=== PATIENT | male | born 1960 | race Caucasian/White ===

== ENCOUNTER → 2019-03-14 14:47 | Outpatient (CLI) | payer OTHER, SELFPAY ==
--- NOTE | 2019-03-14 14:54 | CA_ITS ---
APPROVED REPORT EXAM: Comprehensive 2D, Doppler, and color-flow Echocardiogram Loan Expeditor: Jody Hastings CRT Ht: 5 ft 11 in Wt: 191lbs BSA: 2.07 BP: 117/74 mmHg Indications: pacer, afib 2D Dimensions LVOT 1.87 cm (M/F) 1.5-2.5 M-Mode Dimensions RVDd 2.32 cm (0.9-2.6) LVDd 4.29 cm (3.5-5.7) LVDs 2.78 cm (3.5-5.7) IVSd 1.14 cm (0.6-1.1) PWd 0.77 cm (0.6-1.1) EF (Teich) 64.90% FS 35.20% EDV (Teich) 82.60 mL ESV (Teich) 29.00 mL LV Diastology E/A Ratio 1.33 Mitral Valve MV A Velocity 59.00 (40-130 cm/s) Left Ventricle Left atrium is normal size, left ventricle is normal size, there is no concentric left ventricular hypertrophy, visually estimated ejection fraction 55% with no regional wall motion abnormality. Diastolic parameters are within normal range. Right Ventricle Right atrium and right ventricular normal size and contractility, there is a pacemaker lead seen in the right atrium and right ventricle. Aortic Valve Aortic valve is grossly normal, there is no aortic stenosis or aortic insufficiency. Mitral Valve Mitral valve is grossly normal, there is no mitral stenosis, there is mild mitral regurgitation. Tricuspid Valve Tricuspid valve is grossly normal, there is mild tricuspid regurgitation. Tricuspid regurgitation jet velocity is inadequate for calculation of the right ventricular systolic pressure. Pulmonic Valve Pulmonic valve is poorly visualized. Great Vessels Aortic root is normal size. Pericardium No significant pericardial effusion noted. Conclusion 1. Normal left ventricular size, preserved left ventricular systolic function, visually estimated ejection fraction 55% with no regional wall motion abnormality, diastolic parameters are within normal range. 2. Mild mitral and tricuspid regurgitation. 3. Pacemaker lead seen right atrium and right ventricle. 4. No significant pericardial effusion noted. Electronically signed by : Richar Pitts, 03/15/2019 15:05:18
== END ==
PROVIDERS: PCP Family Medicine; Visit Provider Family Medicine
DX: I42.9 Cardiomyopathy, unspecified (principal)
CPT/HCPCS: 93306

== ENCOUNTER 2020-10-31 13:10 | Emergency (ER) | payer OTHER, SELFPAY ==
[2020-10-31 14:28] VITALS: BP 146/80; PULSE 68; RESP 18; TEMP 36.9; O2SAT 98; BMI 25.7
--- NOTE | 2020-10-31 14:33 | HMH.EDUTC ---
[facility] [place] Disposition Clinical Impression: Sinus infection Qualifiers: Sinusitis location: unspecified location Chronicity: acute Recurrence: non-recurrent Qualified Code(s): J01.90 - Acute sinusitis, unspecified Disposition: Home, Self-Care Condition on Discharge: Good Instructions: Sinusitis, DI for Sinusitis Additional Instructions: Drink plenty of fluids. Take tylenol or ibuprofen for pain or fever. Take the medications as directed. Follow up with your regular doctor. GO TO THE ER FOR ANY WORSENING SYMPTOMS Quarantine until you know the results of your covid-19 test. If it is positive, the health department should call you and give you further instructions about your length of Quarantine and other things. Notify your school or workplace of your results and follow their instructions regarding return to work/school. Prescriptions: Amoxicillin/Potassium Clav [Augmentin 875-125 Tablet] 1 tab PO Q12H 10 Days #20 tab Transmission Status: Received by [facility] methylPREDNISolone [Medrol] 4 mg PO DIRECTED 6 Days #21 packet Transmission Status: Received by [facility] Benzonatate [Tessalon Perle 100mg Cap] 100 mg PO TIDP PRN #30 cap PRN Reason: Cough Transmission Status: Received by [facility] Referrals: Celina Dick MD [Primary Care Provider] - Time of Disposition: 15:08 Medical Decision Making - Medical Records Medical records reviewed: No: I reviewed the patient's medical records. - José Inquiry Pt receiving controlled substance: No Vital Signs: 10/31/20 14:28 10/31/20 15:09 Temperature 98.4 F 98.4 F Temperature Source Oral Oral Pulse Rate 68 Pulse Rate [Apical] 68 Respiratory Rate 18 18 Blood Pressure 146/80 H Blood Pressure [Right Arm] 146/80 H Blood Pressure Mean [Right Arm] 102 Blood Pressure Source Automatic Cuff Blood Pressure Source [Right Arm] Automatic Cuff Blood Pressure Position Sitting Blood Pressure Position [Right Arm] Sitting 02 Sat by Pulse Oximetry 98 Oxygen Delivery Method Room Air Room Air Orders (Tests/Meds): ORDERS Category Date Time Status Covid-19 Nasal PCR ([facility]) Routine Lab 10/31/20 15:10 Received [facility] HPI - General Stated complaint: mucus, cough, diarrhea, congestion Time Seen by Provider: 10/31/20 14:34 Mode of Arrival: Ambulatory Source of Information: Patient Limitations: No Limitations Description of Symptoms (Recalled from Triage Doc. by RN): cough HEENT Symptoms (Recalled from RN notes): No Resp Symptoms (Recalled from RN notes): Yes Skin Symptoms (Recalled from RN notes): No MS Symptoms (Recalled from RN notes): No Functional Status (Recalled from RN notes): na - History of Present Illness Provider Complaint: He states that for the past 6 days or so, he has had worsening sinus pressure and sinus congestion. - Related Data Previous Rx's Medication Instructions Recorded Amoxicillin/Potassium Clav 1 tab PO Q12H 10 Days #20 tab 10/31/20 [Augmentin 875-125 Tablet] Benzonatate [Tessalon Perle 100mg 100 mg PO TIDP PRN #30 cap 10/31/20 Cap] methylPREDNISolone [Medrol] 4 mg PO DIRECTED 6 Days #21 10/31/20 packet - Worker's Comp Is this a Worker's Comp case?: No [facility] History - Hepatitis A Screen Drug use history?: No High risk sexual behaviors?: No History of sexually transmitted infection?: No Currently employed?: No Childcare worker?: No Do you have indoor plumbing?: Yes Do you have electricity?: Yes Attestation statement:: This patient has been screened for Hepatitis A risk factors. I have reviewed the patient's past medical history: Yes ROS Obtained: Yes All systems reviewed & no additional complaints - Constitutional Constitutional: Denies chills, Denies fever(s), Reports poor appetite, Denies malaise - Eyes Eyes: Denies eye discharge - ENT Ears, Nose, Mouth, and Throat: Reports as per HPI - Cardiovascular Cardiovascular: Denies chest pa
[2020-10-31 15:09] VITALS: BP 146/80; PULSE 68; RESP 18; TEMP 36.9; O2SAT 98
--- NOTE | 2020-11-04 16:14 | PC.NURSE ---
pt notified of positive covid results.
== END 2020-10-31 15:10 | disposition home or self-care (01) ==
LOC: UTC 13:11
PROVIDERS: Emergency Provider Nurse Practitioner Family; PCP Family Medicine
DX: J01.90 Acute sinusitis, unspecified (principal); U07.1 COVID-19
CPT/HCPCS: 99202; C9803; G0463; U0003; U0005

== ENCOUNTER 2021-01-30 17:18 | Emergency (ER) | payer OTHER, SELFPAY ==
[2021-01-30 17:19] VITALS: BP 168/98; PULSE 76; RESP 18; TEMP 36.7; O2SAT 97; BMI 26.4
--- NOTE | 2021-01-30 17:31 | XR_ITS ---
PROCEDURE INFORMATION: Exam: XR Left Hand Exam date and time: 01/30/2021 5:31 PM Age: 60 years old Clinical indication: Injury or trauma; Other: Cut the end of thumb off; Amputation, traumatic; Finger; Left thumb; Injury date: 01/30/21; Injury details: Cut end of thumb off; Additional info: Injury to hand TECHNIQUE: Imaging protocol: XR Left hand. Views: 3 or more views. COMPARISON: No relevant prior studies available. FINDINGS: Bones/joints: Normal. Soft tissues: Normal. IMPRESSION: No acute findings.
--- NOTE | 2021-01-30 17:31 | HMH.EDGENADL ---
ED Disposition Clinical Impression: Laceration Disposition: Home, Self-Care Condition on Discharge: Good Additional Instructions: Return to emergency department for any new or concerning symptoms. Keep wound clean and dry, follow-up with your primary care physician. You may wash with soap and water please dried off well and use bacterial cream. Referrals: Celina Dick MD [Primary Care Provider] - - Critical Care Critical Care Time: No Attestation: On , the high probability of a clinically significant, sudden or life threatening deterioration of the following system(s) required my full and direct attention, intervention and personal management. The time I documented below is in addition to time spent performing reported procedures but includes the following listed in this critical care notation. Medical Decision Making - Medical Records Medical records reviewed: Yes: I reviewed the patient's medical records. - José Inquiry Pt receiving controlled substance: No Vital Signs: 01/30/21 17:19 01/30/21 17:42 01/30/21 18:45 Temperature 98.1 F 98.1 F 98.1 F Temperature Source Oral Oral Pulse Rate 76 72 Pulse Rate [Right Radial] 76 Respiratory Rate 18 18 18 Blood Pressure 168/98 H 128/79 Blood Pressure [Right Arm] 168/98 H Blood Pressure Mean [Right Arm] 121 Blood Pressure Source Automatic Cuff Blood Pressure Source [Right Arm] Automatic Cuff Blood Pressure Position Sitting Blood Pressure Position [Right Arm] Sitting 02 Sat by Pulse Oximetry 97 97 Oxygen Delivery Method Room Air Room Air Orders (Tests/Meds): ED MEDICATIONS Discontinued Medications Generic Name Dose Route Start Last Admin Trade Name Freq PRN Reason Stop Dose Admin Acetaminophen 650 mg 01/30/21 17:30 01/30/21 17:54 Acetaminophen 325mg/10.15ml Udc PO 01/30/21 17:31 Not Given ONCE ONE Acetaminophen 650 mg 01/30/21 17:48 01/30/21 17:52 Acetaminophen 325mg Tab PO 01/30/21 17:49 650 mg ONCE ONE Administration Ibuprofen 600 mg 01/30/21 17:30 01/30/21 17:52 Ibuprofen 600 Mg Tablet PO 01/30/21 17:31 600 mg ONCE ONE Administration Tetanus/Diphtheria Toxoids 0.5 ml 01/30/21 17:46 01/30/21 17:52 Tetanus-Diphth Toxoid, Adult 0.5ml Syr IM 01/30/21 17:47 0.5 ml .ONCE ONE Administration Medical Decision Narrative: Patient is a 60-year-old male presenting to emergency department after injury with a saw. Differential diagnosis in this patient includes open fracture, tuft fracture, laceration among others. Given this plan to order x-ray of the patient's left hand. Patient unsure of his last tetanus shot and was given a Tdap shot. Patient was given acetaminophen and Motrin. Bacitracin for covering the joint, and joint was wrapped. Patient did not have any fracture noted on the x-ray. Patient was then discharged in stable condition. General Adult HPI - General Stated complaint: lt hand lac Time Seen by Provider: 01/30/21 17:25 - History of Present Illness HPI narrative: Patient is a 60-year-old male presenting to the emergency department chief complaint of injury to the first digit on his left hand. Patient states that he was doing some woodwork, was sawing and then with the last board he sliced off the tip of his thumb. Denies any blood thinner use, any additional areas of injury. Patient is unsure when his last Tdap shot was. - Related Data Previous Rx's Medication Instructions Recorded Amoxicillin/Potassium Clav 1 tab PO Q12H 10 Days #20 tab 10/31/20 [Augmentin 875-125 Tablet] Benzonatate [Tessalon Perle 100mg 100 mg PO TIDP PRN #30 cap 10/31/20 Cap] methylPREDNISolone [Medrol] 4 mg PO DIRECTED 6 Days #21 10/31/20 packet Allergies Allergy/AdvReac Type Severity Reaction Status Date / Time Penicillins Allergy Verified 01/30/21 17:45 [facility] History - Hepatitis A Screen Attestation statement:: This patient has been screened for H
[2021-01-30 17:42] VITALS: BP 168/98; PULSE 76; RESP 18; TEMP 36.7; O2SAT 97
[2021-01-30 18:45] VITALS: BP 128/79; PULSE 72; RESP 18; TEMP 36.7; O2SAT 98
== END 2021-01-30 18:45 | disposition home or self-care (01) ==
PROVIDERS: Emergency Provider Emergency Medicine; PCP Family Medicine
DX: S61.012A Laceration without foreign body of left thumb without damage to nail, initial encounter (principal); W31.2XXA Contact with powered woodworking and forming machines, initial encounter; Y92.099 Unspecified place in other non-institutional residence as the place of occurrence of the external cause; Z88.0 Allergy status to penicillin; Z23 Encounter for immunization
CPT/HCPCS: 73130; 90714; 99282